=== PATIENT | female | born 1945 | race Caucasian/White ===

== ENCOUNTER 2017-09-26 05:07 | Emergency (ER) | payer MEDICARE, OTHER, MEDICAID ==
[~2017-09-26 05:07] MED LIST changes: -ACET-1966 PO; -ASPI-757 PO; -CALC1TAB24 PO; -CHOL10005 PO; -CYAN250013 PO; -DEXT1DRO15 OP; -DOCU-416 PO; -GUAI237L21 PO; -IBUP200C71 PO; -MAG-66 PO; -MAGN250T34 PO; -MEMA10TA18 PO; -[UNRECOGNIZED DRUG - CODE] PO
--- NOTE | 2017-09-26 05:17 | ER Report ---
History and Physical Time Seen By MD: 05:16 Hx. of Stated Complaint: Patient fell in the bathroom at [facility] HPI/ROS CHIEF COMPLAINT: fall HISTORY OF PRESENT ILLNESS: This is a 71 year old female. She had a fall in the bathroom this morning. She says that she fell to the left side and hit the side of her face and had pain in the left knee. She denies loss of consciousness. She has not headache, nausea, dizziness or vision changes at this time. She has some pain on the left side of her jaw. She denies neck or back pain. She has some pain in the left knee. She denies any other pain. No chest pain. No trouble breathing. No abdominal pain. She says that she did have a bladder suspension a few weeks ago. Allergies: Coded Allergies: Sulfa (Sulfonamide Antibiotics) (Unverified Allergy, Unknown, Rash, ) Home Meds Reported Medications Cholecalciferol (Vitamin D3) (VITAMIN D3) 1,000 Unit Tablet, 2000 UNITS PO DAILY , TAB 09/26/17 Vitamin B Complex (VITAMIN B COMPLEX) 1 Each Capsule, 1 EACH PO DAILY, CAPSULE 09/26/17 Cyanocobalamin (Vitamin B-12) (Vitamin B12) 2,500 Mcg Tab.chew, 0.5 TAB PO DAILY 09/26/17 Guaifenesin/Dextromethorphan (Robitussin Cough-Chest Dm Liq) 100 Mg-5 Mg/5 Ml Liquid, 5 ML PO Q4-6H Y for COUGH 09/26/17 Mag Hydrox/Al Hydrox/Simeth (MAALOX MAXIMUM STRENGTH SUSP) 355 Ml Oral.susp, 15 ML PO Q4H Y for REFLUX 09/26/17 Memantine Hcl 10 Mg Tab (NAMENDA 10 MG TAB) 10 Mg Tablet, 10 MG PO BID, TAB 09/26/17 Magnesium Oxide (MAGNESIUM) 250 Mg Tablet, 250 MG PO QHS 09/26/17 Ibuprofen (IBUPROFEN) 200 Mg Capsule, 3 CAP PO Q6H Y for PAIN, CAPSULE 09/26/17 Simethicone (GAS RELIEF) 125 Mg Capsule, 125 MG PO Q2H Y for GAS, CAPSULE 09/26/17 Docusate Sodium (COLACE) 100 Mg Capsule, 100 MG PO BID, CAPSULE 09/26/17 Aspirin (ASPIRIN) 325 Mg Tablet, 325 MG PO ONCE Y for PAIN, TAB 09/26/17 Dextran 70/Hypromellose (ARTIFICIAL TEARS) 1 Each Droperette, 1 EACH OP 09/26/17 Calcium Carbonate/Mag Hydrox (ANTACID CHEWABLE TABLET) 1 Each Tab.chew, 2 TAB PO Q2H Y for HEARTBURN, TAB.CHEW 09/26/17 Acetaminophen (TYLENOL) 325 Mg Tablet, 1-2 TAB PO Q4H Y for PAIN, TAB 09/26/17 Fesoterodine Fumarate (TOVIAZ) 8 Mg Tabsr, 8 MG PO QHS 08/22/17 Sertraline Hcl (SERTRALINE HCL) 100 Mg Tablet, 1 TAB PO QDAY, TAB 08/22/17 L.acidoph & Paracasei,B.lactis (Probiotic) 1 Each Capsule 08/22/17 Omeprazole (OMEPRAZOLE) 20 Mg Tablet.dr, 20 MG PO QDAY, TAB 08/22/17 Magnesium Hydroxide (MILK OF MAGNESIA) 400 Mg/5 Ml Oral.susp, 400 MG PO, BOTTLE 08/22/17 Lisinopril (LISINOPRIL) 10 Mg Tablet, 10 MG PO QDAY, TAB 08/22/17 Donepezil Hcl (DONEPEZIL HCL) 10 Mg Tab.rapdis, 10 MG PO QDAY, TAB 08/22/17 Atorvastatin Calcium (LIPITOR) 10 Mg Tablet, 1 TAB PO QDAY, TAB 08/22/17 Loperamide HCl (Imodium A-D) 2 Mg Capsule 08/22/17 Diphenhydramine Hcl (DIPHENHYDRAMINE HCL) 25 Mg Tablet, 25 MG PO PRN, TAB 08/22/17 Discontinued Reported Medications Cholecalciferol (Vitamin D3) (VITAMIN D3) 2,000 Unit Capsule, 2000 UNIT PO, CAPSULE 08/22/17 Vitamin B Complex (VITAMIN B COMPLEX) 1 Each Capsule, 1 EACH PO, CAPSULE 08/22/17 Cyanocobalamin (Vitamin B-12) (VITAMIN B-12) 1,000 Mcg/1 Ml Drops, 1000 MCG PO 08/22/17 Memantine HCl 10 MG (Memantine HCl 10 MG) 10 Mg Tablet 08/22/17 Meloxicam (MELOXICAM) 7.5 Mg Tablet, 7.5 MG PO QDAY 08/22/17 Aspirin (ASPIR 81) 81 Mg Tablet.dr, 81 MG PO QDAY, TAB 08/22/17 Simethicone (GAS-X) 125 Mg Tab.chew, 125 MG PO, TAB.CHEW 08/22/17 Acetaminophen 500 Mg Tab (ACETAMINOPHEN EXTRA STRENGTH) 500 Mg Tablet, 500 MG PO PRN, TAB 08/22/17 Methylprednisolone (METHYLPREDNISOLONE) 4 Mg Tab.ds.pk, 4 MG PO DIRECTED, TAB 08/22/17 Reviewed Nurses Notes: Yes Smoking Status: Never Smoker Constitutional Vital Sign - Last 24 Hours 09/26/17 09/26/17 09/26/17 09/26/17 05:08 05:30 05:45 06:00 Temp 98.1 Pulse 86 75 78 Resp 16 B/P (MAP) 130/89 Pulse Ox 90 96 97 96 O2 Delivery Room Air 09/26/17 06:52 B/P (MAP) 144/67 (92) Physical Exam General Appearance: The patient is alert, has no immediate need for airway protection and no current signs of toxicity. Eyes: Pupils equal and round, reactive to light, normal conjunctiva and sclera, extraocular movements are intact. ENT: No dental or oral trauma. Has some pain with palpation along the left lower mandible, but no pain at the TMJ, Zygoma, orbital rims or nasal bones. Tympanic membranes normal bilaterally Respiratory: Chest is non tender to palpation. Breath sounds are equal. Cardiac: Regular rate and rhythm. Gastrointestinal: Soft and non tender, there is no evidence of external or internal trauma by exam. Neurological: GCS 15. Alert and oriented x4. Skin: No lacerations. She does have some abrasions at the anterior and lateral left knee Musculoskeletal: Head: Atraumatic without scalp tenderness. Neck: The cervical spine is non-tender and there is no pain with active range of motion. Back: There is no thoracic or lumbar spine or paraspinal tenderness. Pelvis: Non-tender, no laxity with pelvic pressure. Extremities: Tender with palpation throughout the left knee. No pain in the rest of the extremities with full palpation of each area. DIFFERENTIAL DIAGNOSIS: After history and physical exam differential diagnosis was considered for trauma in a fall with pain only in the left mandible and left knee. Medical Decision Making EKG/Imaging Imaging KNEE 4 VIEW LEFT HISTORY: Fall. Left jaw and left knee pain. Unable to stand. COMPARISON: None. TECHNIQUE: AP, lateral, oblique, and sunrise views of the left knee. FINDINGS: There is no fracture or dislocation. There is mild medial and lateral tibiofemoral joint compartment narrowing. No joint effusion. IMPRESSION: 1. Mild degenerative changes, but no acute osseous abnormality of the left knee. Report Dictated By: Christianne Beebe at 09/26/2017 6:54 AM MANDIBLE < 4 VIEWS HISTORY: Fall. Left jaw and left knee pain. COMPARISON: None. TECHNIQUE: AP, lateral, right and left oblique, and Luna views of the mandible. FINDINGS: There is no fracture or dislocation. The mastoids and paranasal sinuses are well aerated. IMPRESSION: 1. No acute osseous abnormality of the mandible. Report Dictated By: Christianne Beebe at 09/26/2017 6:56 AM ED Course/Re-evaluation ED Course After exam, the only places that were hurting were her left knee and left lower jaw. imaging of these was negative. The patient was given tylenol for pain and an KEISHA wrap for compression of the knee. Decision to Disposition Date: Sep 26, 2017 Decision to Disposition Time: 07:13 Depart Departure Latest Vital Signs Vital Signs Date Time Temp Pulse Resp B/P (MAP) Pulse Ox O2 Delivery O2 Flow Rate FiO2 09/26/17 06:52 144/67 (92) 09/26/17 06:00 96 09/26/17 05:45 78 09/26/17 05:08 98.1 16 Room Air Impression: Primary Impression: Left knee sprain Additional Impression: Contusion of jaw Condition: Improved Disposition: HOME OR SELF-CARE Referrals: KOBE REYES MD (PCP) Patient Instructions: Contusion in Adults (ED), Knee Sprain (ED) Additional Instructions: Ibuprofen 200mg over the counter tablets, take 3 tablets three times a day with food as needed for pain. Tylenol 500mg, 1-2 every 6 hours as needed for pain. Apply ice 20 minutes every 1-2 hours while awake. An KEISHA wrap can be used for compression to help reduce swelling. Rest the injured area, keep it elevated while at rest. Begin gentle range of motion exercises. Problem Qualifiers Primary Impression: Left knee sprain Encounter type: initial encounter Involved ligament of knee: unspecified ligament Qualified Codes: S83.92XA - Sprain of unspecified site of left knee, initial encounter Additional Impression: Contusion of jaw Encounter type: initial encounter Qualified Codes: S00.83XA - Contusion of other part of head, initial encounter WILLIAM MONTEZ MD Sep 26, 2017 05:16
[2017-09-26] MEDS ORDERED: ASPI-757 PO (05:46)
[2017-09-26] MEDS ORDERED: MAG-66 PO (05:46)
[2017-09-26] MEDS ORDERED: DOCU-416 PO (05:46)
[2017-09-26] MEDS ORDERED: ACET-1966 PO (05:46)
[2017-09-26] MEDS ORDERED: CHOL10005 PO (05:46)
[2017-09-26] MEDS ORDERED: DEXT1DRO15 OP (05:46)
[2017-09-26] MEDS ORDERED: [UNRECOGNIZED DRUG - CODE] PO (05:46)
[2017-09-26] MEDS ORDERED: IBUP200C71 PO (05:46)
[2017-09-26] MEDS ORDERED: MEMA10TA18 PO (05:46)
[2017-09-26] MEDS ORDERED: GUAI237L21 PO (05:46)
[2017-09-26] MEDS ORDERED: VITA1CAP46 PO (05:46)
[2017-09-26] MEDS ORDERED: MAGN250T34 PO (05:46)
[2017-09-26] MEDS ORDERED: CYAN250013 PO (05:46)
[2017-09-26] MEDS ORDERED: CALC1TAB24 PO (05:46)
[2017-09-26 06:52] VITALS: BP 144/67
--- NOTE | 2017-09-26 07:01 | RADIOLOGY IMAGING REPORT ---
FACILITY: [facility] PATIENT NAME: Linda Shepard : 1945 MR: [id number] V: [id number] EXAM DATE: ORDERING PHYSICIAN: WILLIAM MONTEZ TECHNOLOGIST: Location: [facility] - [place] Patient: Linda Shepard : 1945 Visit/Account:[id number] Date of Sevice: 09/26/2017 KNEE 4 VIEW LEFT HISTORY: Fall. Left jaw and left knee pain. Unable to stand. COMPARISON: None. TECHNIQUE: AP, lateral, oblique, and sunrise views of the left knee. FINDINGS: There is no fracture or dislocation. There is mild medial and lateral tibiofemoral joint co mpartment narrowing. No joint effusion. IMPRESSION: 1. Mild degenerative changes, but no acute osseous abnormality of the left knee. Report Dictated By: Christianne Beebe at 09/26/2017 6:54 AM Report E-Signed By: Christianne Beebe at 09/26/2017 6:56 AM WSN:[id number]
--- NOTE | 2017-09-26 07:03 | RADIOLOGY IMAGING REPORT ---
FACILITY: [facility] - [place] PATIENT NAME: Linda Shepard : 1945 MR: [id number] V: [id number] EXAM DATE: ORDERING PHYSICIAN: WILLIAM MONTEZ TECHNOLOGIST: Location: [facility] - [place] Patient: Linda Shepard : 1945 Visit/Account:[id number] Date of Sevice: 09/26/2017 MANDIBLE < 4 VIEWS HISTORY: Fall. Left jaw and left knee pain. COMPARISON: None. TECHNIQUE: AP, lateral, right and left oblique, and Luna views of the mandible. FINDINGS: There is no fracture or dislocation. The mastoids and paranasal sinuses are well aerated. IMPRESSION: 1. No acute osseous abnormality of the mandible. Report Dictated By: Christianne Beebe at 09/26/2017 6:56 AM Report E-Signed By: Christianne Beebe at 09/26/2017 6:58 AM WSN:[id number]
[2017-09-26] MEDS ORDERED: ACETAMINOPHEN 500 MG TAB PO ONE (07:15)
== END 2017-09-26 07:45 | disposition home or self-care (01) ==
LOC: ER 05:16
DX: S83.92XA Sprain of unspecified site of left knee, initial encounter (principal); S00.83XA Contusion of other part of head, initial encounter; W18.30XA Fall on same level, unspecified, initial encounter
CPT/HCPCS: 70100; 73564; 99283; A9270

== ENCOUNTER → 2017-09-26 | Outpatient (CLI) | payer MEDICARE, OTHER, MEDICAID ==
[~2017-09-26] MED LIST: ACET-1966 PO; ACET-2146 PO; ASPI-1471 PO; ASPI-757 PO; ATOR10TA24 PO; CALC1TAB24 PO; CHOL10005 PO; CHOL200025 PO; CYAN10006 PO; CYAN250013 PO; DEXT1DRO15 OP; DIPH-616 PO; DOCU-416 PO; DONE10TA45 PO; FESO8PT PO; GUAI237L21 PO; IBUP200C71 PO; L.AC1CAP6; LISI-362 PO; LOPE2CAP15; MAG-66 PO; MAGN250T34 PO; MELO-205 PO; MEMA10TA18 PO; MEMA10TA3; METH4TAB66 PO; MOM PO; OMEP-137 PO; SERT-181 PO; SIME125T40 PO; VITA1CAP46 PO; [UNRECOGNIZED DRUG - CODE] PO
== END ==
LOC: AMB 04:39
PROVIDERS: ATTEND Nurse Practitioner
DX: M54.9 Dorsalgia, unspecified (principal); M25.512 Pain in left shoulder; W19.XXXA Unspecified fall, initial encounter
CPT/HCPCS: A0425; A0429

== ENCOUNTER → 2017-10-27 | Outpatient (REF) | payer MEDICARE, OTHER, MEDICAID ==
[~2017-10-27] MED LIST changes: +ACET-1966 PO; +ASPI-757 PO; +CALC1TAB24 PO; +CHOL10005 PO; +CYAN250013 PO; +DEXT1DRO15 OP; +DOCU-416 PO; +GUAI237L21 PO; +IBUP-136 PO; +MAG-66 PO; +MAGN250T34 PO; +MEMA10TA18 PO; +[UNRECOGNIZED DRUG - CODE] PO
== END ==
LOC: ZZSENDIN 10-26 06:37 → ZZSPRING 14:00
PROVIDERS: ATTEND Family Medicine
DX: R53.83 Other fatigue (principal); B96.89 Other specified bacterial agents as the cause of diseases classified elsewhere
CPT/HCPCS: 81001; 87088

== ENCOUNTER 2018-02-23 20:34 | Emergency (ER) | payer MEDICARE, OTHER, MEDICAID ==
[2018-02-23] MEDS ORDERED: NS(*) 0.9% 1000 ML BAG 1,000 ML IV ONE (20:47)
--- NOTE | 2018-02-23 20:47 | ER Report ---
History and Physical Time Seen By MD: 20:43 Hx. of Stated Complaint: Chest tightness, high bp, sob and very belchy HPI/ROS CHIEF COMPLAINT: chest tightness, belching, nausea. HISTORY OF PRESENT ILLNESS: This is a 72 year old female. Sent to the ER by EMS from [facility]. She told the nurses she was having chest pressure as well as increased belching and reflux. She had been having this for several hours, and not improving. She has dementia. She does take omeprazole. Has hypertension, but no history of coronary artery disease. Nothing changes her symptoms. No shortness of breath. No fevers or chills. Allergies: Coded Allergies: Sulfa (Sulfonamide Antibiotics) (Unverified Allergy, Unknown, Rash, 02/23/18) Home Meds Reported Medications Cholecalciferol (Vitamin D3) (VITAMIN D3) 1,000 Unit Tablet, 2000 UNITS PO DAILY, TAB 09/26/17 Vitamin B Complex (VITAMIN B COMPLEX) 1 Each Capsule, 1 EACH PO DAILY, CAPSULE 09/26/17 Cyanocobalamin (Vitamin B-12) (Vitamin B12) 2,500 Mcg Tab.chew, 0.5 TAB PO DAILY 09/26/17 Guaifenesin/Dextromethorphan (Robitussin Cough-Chest Dm Liq) 100 Mg-5 Mg/5 Ml Liquid, 5 ML PO Q4-6H PRN for COUGH 09/26/17 Mag Hydrox/Al Hydrox/Simeth (MAALOX MAXIMUM STRENGTH SUSP) 355 Ml Oral.susp, 15 ML PO Q4H PRN for REFLUX 09/26/17 Memantine Hcl 10 Mg Tab (NAMENDA 10 MG TAB) 10 Mg Tablet, 10 MG PO BID, TAB 09/26/17 Magnesium Oxide (MAGNESIUM) 250 Mg Tablet, 250 MG PO QHS 09/26/17 Ibuprofen (IBUPROFEN) 200 Mg Capsule, 3 CAP PO Q6H PRN for PAIN, CAPSULE 09/26/17 Simethicone (GAS RELIEF) 125 Mg Capsule, 125 MG PO Q2H PRN for GAS, CAPSULE 09/26/17 Docusate Sodium (COLACE) 100 Mg Capsule, 100 MG PO BID, CAPSULE 09/26/17 Aspirin (ASPIRIN) 325 Mg Tablet, 325 MG PO ONCE PRN for PAIN, TAB 09/26/17 Dextran 70/Hypromellose (ARTIFICIAL TEARS) 1 Each Droperette, 1 EACH OP 09/26/17 Calcium Carbonate/Mag Hydrox (ANTACID CHEWABLE TABLET) 1 Each Tab.chew, 2 TAB PO Q2H PRN for HEARTBURN, TAB.CHEW 09/26/17 Acetaminophen (TYLENOL) 325 Mg Tablet, 1-2 TAB PO Q4H PRN for PAIN, TAB 09/26/17 Fesoterodine Fumarate (TOVIAZ) 8 Mg Tabsr, 8 MG PO QHS 08/22/17 Sertraline Hcl (SERTRALINE HCL) 100 Mg Tablet, 1 TAB PO QDAY, TAB 08/22/17 L.acidoph & Paracasei,B.lactis (Probiotic) 1 Each Capsule 08/22/17 Omeprazole (OMEPRAZOLE) 20 Mg Tablet.dr, 20 MG PO QDAY, TAB 08/22/17 Magnesium Hydroxide (MILK OF MAGNESIA) 400 Mg/5 Ml Oral.susp, 400 MG PO, BOTTLE 08/22/17 Lisinopril (LISINOPRIL) 10 Mg Tablet, 10 MG PO QDAY, TAB 08/22/17 Donepezil Hcl (DONEPEZIL HCL) 10 Mg Tab.rapdis, 10 MG PO QDAY, TAB 08/22/17 Atorvastatin Calcium (LIPITOR) 10 Mg Tablet, 1 TAB PO QDAY, TAB 08/22/17 Loperamide HCl (Imodium A-D) 2 Mg Capsule 08/22/17 Diphenhydramine Hcl (DIPHENHYDRAMINE HCL) 25 Mg Tablet, 25 MG PO PRN, TAB 08/22/17 Reviewed Nurses Notes: Yes Smoking Status: Never Smoker Constitutional Vital Sign - Last 24 Hours 02/23/18 02/23/18 02/23/18 02/23/18 20:37 20:43 20:49 21:00 Temp 97.8 Pulse 65 64 Resp 14 32 B/P (MAP) 145/121 145/121 (129) 165/71 (102) Pulse Ox 96 97 O2 Delivery Room Air 02/23/18 02/23/18 02/23/18 02/23/18 21:04 21:09 21:24 21:30 Pulse 63 62 60 Resp 14 26 22 B/P (MAP) ???/??? (5185) 11/12/18 11/12/18 11/12/18 11/12/18 21:39 21:54 22:00 22:09 Pulse 63 61 61 Resp 19 16 13 B/P (MAP) 151/85 (107) Pulse Ox 95 02/23/18 02/23/18 02/23/18 02/23/18 22:24 22:30 22:35 22:50 Pulse 57 56 60 Resp 23 19 26 B/P (MAP) 154/69 (97) Pulse Ox 96 97 94 02/23/18 02/23/18 02/23/18 02/23/18 22:55 23:00 23:17 23:25 Pulse 60 57 Resp 17 23 B/P (MAP) ???/??? (1665) 155/70 (98) Pulse Ox 96 95 02/23/18 02/23/18 02/24/18 02/24/18 23:30 23:55 00:00 00:25 Pulse 60 60 Resp 17 16 B/P (MAP) 141/65 (90) 135/61 (85) Pulse Ox 96 96 02/24/18 00:30 B/P (MAP) 132/66 (88) Intake and Output 02/23/18 02/23/18 02/24/18 15:00 23:00 07:00 Intake Total 1000 ml Balance 1000 ml Physical Exam General Appearance: The patient is alert. No acute distress. Eyes: Pupils are equal, round. No pallor, injection or icterus. ENT: Mucous membranes are moist. Normal posterior oropharynx. Neck: Supple and non tender. Respiratory: Lungs are clear to auscultation. Cardiovascular: Regular rate and rhythm. No murmurs, gallops or rubs. Normal capillary refill. No edema. Gastrointestinal: Abdomen is soft and non tender. Nondistended. Normal active bowel sounds. No costovertebral angle tenderness with percussion. Neurological: Alert and oriented x3. Skin: Warm and dry. Musculoskeletal: Extremities are nontender. No tenderness in palpation of the cervical, thoracic and lumbar spine. DIFFERENTIAL DIAGNOSIS: After history and physical exam, differential diagnosis was considered for chest pain including but not limited to myocardial ischemia, pulmonary embolus, chest wall pain, pleural inflammation, reflux and pulmonary infectious causes. Medical Decision Making Data Points Result Diagram: 02/23/18212102/23/182121 Laboratory Hematology Test 02/23/18 21:22 Red Blood Count 4.00 M/uL (4.17-5.56) Mean Corpuscular Volume 93.6 fL (80.0-96.0) Mean Corpuscular Hemoglobin 32.3 pg (26.0-33.0) Mean Corpuscular Hemoglobin Concent 34.6 g/dL (32.0-36.0) Red Cell Distribution Width 12.7 % (11.5-14.5) Mean Platelet Volume 8.5 fL (7.2-11.1) Neutrophils (%) (Auto) 28.5 % (39.4-72.5) Lymphocytes (%) (Auto) 62.0 % (17.6-49.6) Monocytes (%) (Auto) 7.1 % (4.1-12.4) Eosinophils (%) (Auto) 1.3 % (0.4-6.7) Basophils (%) (Auto) 1.1 % (0.3-1.4) Nucleated RBC Relative Count (auto) 0.1 /100WBC Neutrophils # (Auto) 2.3 K/uL (2.0-7.4) Lymphocytes # (Auto) 5.0 K/uL (1.3-3.6) Monocytes # (Auto) 0.6 K/uL (0.3-1.0) Eosinophils # (Auto) 0.1 K/uL (0.0-0.5) Basophils # (Auto) 0.1 K/uL (0.0-0.1) Nucleated RBC Absolute Count (auto) 0.00 K/uL Peripheral Blood Smear Yes Y/N D-Dimer Quantitative (PE/DVT) 1.19 ug/ml (0-0.50) Sodium Level 139 mmol/L (137-145) Potassium Level 3.9 mmol/L (3.5-5.0) Chloride Level 108 mmol/L (98-107) Carbon Dioxide Level 23 mmol/L (22-31) Blood Urea Nitrogen 16 mg/dl (7-18) Creatinine 0.80 mg/dl (0.52-1.04) Glomerular Filtration Rate Calc > 60.0 Random Glucose 93 mg/dl (75-110) Calcium Level 9.4 mg/dl (8.4-10.2) Total Bilirubin 0.5 mg/dl (0.2-1.3) Aspartate Amino Transf (AST/SGOT) 43 U/L (0-35) Alanine Aminotransferase (ALT/SGPT) 33 U/L (0-56) Alkaline Phosphatase 59 U/L (0-126) Troponin I < 0.012 ng/ml B-Type Natriuretic Peptide 59 pg/ml (0-100) Total Protein 7.1 g/dl (6.3-8.2) Albumin 3.8 g/dl (3.5-5.0) Chemistry Test 02/23/18 21:22 White Blood Count 8.0 k/uL (4.5-11.0) Red Blood Count 4.00 M/uL (4.17-5.56) Hemoglobin 12.9 g/dL (12.0-16.0) Hematocrit 37.4 % (34.0-47.0) Mean Corpuscular Volume 93.6 fL (80.0-96.0) Mean Corpuscular Hemoglobin 32.3 pg (26.0-33.0) Mean Corpuscular Hemoglobin Concent 34.6 g/dL (32.0-36.0) Red Cell Distribution Width 12.7 % (11.5-14.5) Platelet Count 192 K/uL (150-450) Mean Platelet Volume 8.5 fL (7.2-11.1) Neutrophils (%) (Auto) 28.5 % (39.4-72.5) Lymphocytes (%) (Auto) 62.0 % (17.6-49.6) Monocytes (%) (Auto) 7.1 % (4.1-12.4) Eosinophils (%) (Auto) 1.3 % (0.4-6.7) Basophils (%) (Auto) 1.1 % (0.3-1.4) Nucleated RBC Relative Count (auto) 0.1 /100WBC Neutrophils # (Auto) 2.3 K/uL (2.0-7.4) Lymphocytes # (Auto) 5.0 K/uL (1.3-3.6) Monocytes # (Auto) 0.6 K/uL (0.3-1.0) Eosinophils # (Auto) 0.1 K/uL (0.0-0.5) Basophils # (Auto) 0.1 K/uL (0.0-0.1) Nucleated RBC Absolute Count (auto) 0.00 K/uL Peripheral Blood Smear Yes Y/N D-Dimer Quantitative (PE/DVT) 1.19 ug/ml (0-0.50) Glomerular Filtration Rate Calc > 60.0 Calcium Level 9.4 mg/dl (8.4-10.2) Total Bilirubin 0.5 mg/dl (0.2-1.3) Aspartate Amino Transf (AST/SGOT) 43 U/L (0-35) Alanine Aminotransferase (ALT/SGPT) 33 U/L (0-56) Alkaline Phosphatase 59 U/L (0-126) Troponin I < 0.012 ng/ml B-Type Natriuretic Peptide 59 pg/ml (0-100) Total Protein 7.1 g/dl (6.3-8.2) Albumin 3.8 g/dl (3.5-5.0) Coagulation Test 02/23/18 21:22 D-Dimer Quantitative (PE/DVT) 1.19 ug/ml EKG/Imaging EKG Interpretation 12 lead EKG: Rhythm: Normal sinus rhythm, rate 64 [place]: normal QRS: Low-voltage ST segments: normal Imaging INDICATION: Chest Pain. DATE: 02/23/2018 10:47 PM. TECHNIQUE: CHEST SINGLE AP COMPARISON: None FINDINGS: Heart size is normal. The lungs are hyperinflated. Interstitium is diffusely prominent. The hilar vasculature is distinct. IMPRESSION: No focal pneumonia. Hyperinflation suggests background emphysema. Report Dictated By: Devin Hudson MD at 02/23/2018 10:[address] PE DATE: 02/23/2018 11:40 PM INDICATION: Chest pain, elevated d-dimer. COMPARISON: Same-day chest radiograph. TECHNIQUE: Axial CT angiogram was obtained through the chest with intravenous contrast. Sagittal and coronal MPR and MIP coronal reformations were also generated. 75 mL isovue 370. One of the following dose optimization techniques was utilized in the performance of this exam: Automated exposure control; adjustment of the mA and/or kV according to the patient's size; or use of an iterative reconstruction technique. Specific details can be referenced in the facility's radiology CT exam operational policy. FINDINGS: Thyroid / Thoracic Inlet: No visualized thyroid nodule or supraclavicular lymphadenopathy. Pulmonary Arteries: No pulmonary embolism. Heart and Aorta: Normal-size heart with no pericardial effusion. Mild coronary artery calcification. Nonaneurysmal thoracic aorta with mild atherosclerosis. Mediastinum and Peggy: No lymphadenopathy. Lungs and Pleura: No pleural effusion or pneumothorax. Minimal scarring/atelectasis. No suspicious consolidation. Breast and Axilla: No axillary lymphadenopathy. Probable scarring and fat necrosis in the right breast. Upper Abdomen: No visualized acute abnormality. Bones and Soft Tissues: No suspicious osseous or soft tissue abnormality. IMPRESSION: No pulmonary embolism or other acute abnormality. Report Dictated By: Ian Luciano MD at 02/23/2018 11:40 PM ED Course/Re-evaluation Clinical Indication for ER IV: IV Access ED Course Initial evaluation as noted above. Mild symptoms of pressure at this time, still with burping. Improved after GI cocktail. Chest x-ray negative. Normal labs other than d-dimer. CTA done and negative. Decision to Disposition Date: Feb 24, 2018 Decision to Disposition Time: 00:30 Depart Departure Latest Vital Signs Vital Signs Date Time Temp Pulse Resp B/P (MAP) Pulse Ox O2 Delivery O2 Flow Rate FiO2 02/24/18 00:30 132/66 (88) 02/24/18 00:25 60 16 96 02/23/18 20:37 97.8 Room Air Impression: Primary Impression: Chest pain Condition: Improved Disposition: HOME OR SELF-CARE Referrals: KOBE REYES MD (PCP) Patient Instructions: Chest Pain (ED) Additional Instructions: We did not find a cause for your chest pain tonight. This may have been some indigestion and burping. No sign of blood clots, heart attack or pneumonia. Recommendation for follow-up with primary care in the next 1-2 weeks. Problem Qualifiers Primary Impression: Chest pain Chest pain type: other chest pain Qualified Codes: R07.89 - Other chest pain WILLIAM MONTEZ MD Feb 23, 2018 20:47
[2018-02-23] MEDS ORDERED: MAG HYD/AL HYD/SIMETH 30ML UDC PO ONE (20:50)
[2018-02-23] MEDS ORDERED: LIDOCAINE 2% VISC SLN 15ML UDC PO ONE (20:50)
[2018-02-23] MEDS ORDERED: ATRO/SCOPOL/HYOSCY/PB 5 ML ELX PO ONE (20:50)
[2018-02-23] MEDS ORDERED: ASPIRIN 81 MG CHEW PO ONE (20:50)
[2018-02-23 21:34] LABS: PLATELET COUNT, AUTOMATED 192 K/uL (150-450)
--- NOTE | 2018-02-23 22:54 | EKG ---
FACILITY: [facility] - [place] PATIENT NAME: GILBERTO GONZALEZ : [id number] MR: [id number] V: [id number] EXAM DATE: ORDERING PHYSICIAN: WILLIAM MONTEZ TECHNOLOGIST: DIANNA Fox Reason : CARDIAC Blood Pressure : / mmHG Vent. Rate : 064 BPM Atrial Rate : 064 BPM P-R Int : 160 ms QRS Dur : 074 ms QT Int : 446 ms P-R-T Axes : 074 000 071 degrees QTc Int : 460 ms Normal sinus rhythm Low voltage QRS Cannot rule out Anteroseptal infarct , age undetermined Abnormal ECG No previous ECGs available Confirmed by ELIE COLEMAN ([id number]) on 02/24/2018 6:37:59 AM Referred By: Confirmed By:ELIE COLEMAN
--- NOTE | 2018-02-23 22:54 | RADIOLOGY IMAGING REPORT ---
FACILITY: [facility] PATIENT NAME: Linda Shepard : 1945 MR: [id number] V: [id number] EXAM DATE: ORDERING PHYSICIAN: WILLIAM MONTEZ TECHNOLOGIST: Location: [facility] - [place] Patient: Linda Shepard : 1945 Visit/Account:[id number] Date of Sevice: 02/23/2018 INDICATION: Chest Pain. DATE: 02/23/2018 10:47 PM. TECHNIQUE: CHEST SINGLE AP COMPARISON: None FINDINGS: Heart size is normal. The lungs are hyperinflated. Interstitium is diffusely prominent. The hilar vasculature is distinct. IMPRESSION: No focal pneumonia. Hyperinflation suggests background emphysema. Report Dictated By: Devin Hudson MD at 02/23/2018 10:47 PM Report E-Signed By: Devin Hudson MD at 02/23/2018 10:50 PM WSN:[id number]
[2018-02-23] MEDS ORDERED: IOPAMIDOL 76% 75 ML INFUS BTL 75 ML ONE (22:56)
[2018-02-23] MEDS ORDERED: NS(*) 0.9% 50 ML BAG 50 ML ONE (22:56)
--- NOTE | 2018-02-23 23:53 | RADIOLOGY IMAGING REPORT ---
FACILITY: [facility] - [place] PATIENT NAME: Linda Shepard : 1945 MR: [id number] V: [id number] EXAM DATE: ORDERING PHYSICIAN: WILLIAM MONTEZ TECHNOLOGIST: Location: [facility] Patient: Linda Shepard : 1945 Visit/Account:[id number] Date of Sevice: 02/23/2018 CT PE DATE: 02/23/2018 11:40 PM INDICATION: Chest pain, elevated d-dimer. COMPARISON: Same-day chest radiograph. TECHNIQUE: Axial CT angiogram was obtained through the chest with intravenous contrast. Sagittal an d coronal MPR and MIP coronal reformations were also generated. 75 mL isovue 370. One of the follow ing dose optimization techniques was utilized in the performance of this exam: Automated exposure con trol; adjustment of the mA and/or kV according to the patient's size; or use of an iterative reconst ruction technique. Specific details can be referenced in the facility's radiology CT exam operationa l policy. FINDINGS: Thyroid / Thoracic Inlet: No visualized thyroid nodule or supraclavicular lymphadenopathy. Pulmonary Arteries: No pulmonary embolism. Heart and Aorta: Normal-size heart with no pericardial effusion. Mild coronary artery calcification . Nonaneurysmal thoracic aorta with mild atherosclerosis. Mediastinum and Peggy: No lymphadenopathy. Lungs and Pleura: No pleural effusion or pneumothorax. Minimal scarring/atelectasis. No suspicious consolidation. Breast and Axilla: No axillary lymphadenopathy. Probable scarring and fat necrosis in the right kwaku ast. Upper Abdomen: No visualized acute abnormality. Bones and Soft Tissues: No suspicious osseous or soft tissue abnormality. IMPRESSION: No pulmonary embolism or other acute abnormality. Report Dictated By: Ian Luciano MD at 02/23/2018 11:40 PM Report E-Signed By: Ian Luciano MD at 02/23/2018 11:50 PM WSN:[id number]
[2018-02-24 00:30] VITALS: BP 132/66
== END 2018-02-24 00:50 | disposition home or self-care (01) ==
LOC: ER 20:59
DX: R07.89 Other chest pain (principal)
CPT/HCPCS: 36415; 71045; 71275; 83880; 84484; 85025; 85379; 93005; 96360; 99284; A9270; J7030; J7050; Q9967; 82040; 82247; 82310; 82374; 82435; 82565; 82947; 84075; 84132; 84155; 84295; 84450; 84460; 84520

== ENCOUNTER → 2018-02-23 | Outpatient (CLI) | payer MEDICARE, OTHER, MEDICAID | LOC: AMB 20:15 | PROVIDERS: ATTEND Nurse Practitioner | DX: R07.1 Chest pain on breathing (principal); R14.2 Eructation | CPT/HCPCS: A0425; A0427 ==

== ENCOUNTER → 2018-05-19 | Outpatient (CLI) | payer MEDICARE, OTHER, MEDICAID ==
[~2018-05-19] MED LIST changes: +SIME125C33 PO; -[UNRECOGNIZED DRUG - CODE] PO
== END ==
LOC: ZZSPRING 01:11
PROVIDERS: ATTEND Family Medicine
DX: Z51.81 Encounter for therapeutic drug level monitoring (principal); Z79.899 Other long term (current) drug therapy
CPT/HCPCS: 36415; 82310; 82374; 82435; 82565; 82947; 84132; 84295; 84520

== ENCOUNTER 2018-06-10 22:22 | Emergency (ER) | payer MEDICARE, OTHER, MEDICAID ==
[~2018-06-10 22:22] MED LIST changes: -HYDR-2966 PO; -MIRA25TA PO; -PREPH PR; -QUET25TA PO
--- NOTE | 2018-06-10 22:29 | ER Report ---
History and Physical Time Seen By MD: 22:28 Hx. of Stated Complaint: PATIENT BROUGHT IN VIA EMS. NURSE, BARBARA, CALLED TO REPORT THAT PATIENT FELL YESTERDAY AND HIT HEAD. THEN SECOND FALL OCCURED TONIGHT. REPORTED PATIENT SLID OFF BED AND COMPAINS OF LEFT SIDED RIB PAIN. HPI/ROS CHIEF COMPLAINT: falls, head, neck shoulder and rib pain HISTORY OF PRESENT ILLNESS: This is a 72 year old female. She is a resident of [facility]. Had a fall last night, hit head and shoulder, with pain. Same tonight and left rib pain. These were episodes of sliding out of bed, question if she was meaning to do so for attention, which sounds like has be a problem in the past. She has underlying dementia. She denies nausea. She denies dizziness at this time. Normal vision. Allergies: Coded Allergies: Sulfa (Sulfonamide Antibiotics) (Verified Allergy, Unknown, Rash, 06/10/18) Home Meds Reported Medications Phe/Shark Liver Oil/Glycer/Pet (PREPARATION H CREAM) 27 Gm Cr, 27 GM [place] BID 06/11/18 Mirabegron (MYRBETRIQ) 25 Mg Tab.er.24h, 25 MG PO HS 06/11/18 Quetiapine Fumarate (QUETIAPINE FUMARATE) 25 Mg Tablet, 12.5 MG PO BID 06/11/18 Hydrochlorothiazide (HYDROCHLOROTHIAZIDE) 25 Mg Tablet, 0.5 TAB PO QDAY, TAB 06/11/18 Cholecalciferol (Vitamin D3) (VITAMIN D3) 1,000 Unit Tablet, 2000 UNITS PO DAILY, TAB 09/26/17 Vitamin B Complex (VITAMIN B COMPLEX) 1 Each Capsule, 1 EACH PO DAILY, CAPSULE 09/26/17 Cyanocobalamin (Vitamin B-12) (Vitamin B12) 2,500 Mcg Tab.chew, 0.5 TAB PO DAILY 09/26/17 Guaifenesin/Dextromethorphan (Robitussin Cough-Chest Dm Liq) 100 Mg-5 Mg/5 Ml Liquid, 5 ML PO Q4-6H PRN for COUGH 09/26/17 Mag Hydrox/Al Hydrox/Simeth (MAALOX MAXIMUM STRENGTH SUSP) 355 Ml Oral.susp, 15 ML PO Q4H PRN for REFLUX 09/26/17 Memantine Hcl 10 Mg Tab (NAMENDA 10 MG TAB) 10 Mg Tablet, 10 MG PO BID, TAB 09/26/17 Ibuprofen (IBUPROFEN) 200 Mg Capsule, 3 CAP PO Q6H PRN for PAIN, CAPSULE 09/26/17 Simethicone (GAS RELIEF) 125 Mg Capsule, 125 MG PO Q2H PRN for GAS, CAPSULE 09/26/17 Docusate Sodium (COLACE) 100 Mg Capsule, 100 MG PO BID, CAPSULE 09/26/17 Aspirin (ASPIRIN) 325 Mg Tablet, 325 MG PO ONCE PRN for PAIN, TAB 09/26/17 Dextran 70/Hypromellose (ARTIFICIAL TEARS) 1 Each Droperette, 1 EACH OP 09/26/17 Calcium Carbonate/Mag Hydrox (ANTACID CHEWABLE TABLET) 1 Each Tab.chew, 2 TAB PO Q2H PRN for HEARTBURN, TAB.CHEW 09/26/17 Acetaminophen (TYLENOL) 325 Mg Tablet, 1-2 TAB PO Q4H PRN for PAIN, TAB 09/26/17 Sertraline Hcl (SERTRALINE HCL) 100 Mg Tablet, 1 TAB PO QDAY, TAB 08/22/17 L.acidoph & Paracasei,B.lactis (Probiotic) 1 Each Capsule 08/22/17 Omeprazole (OMEPRAZOLE) 20 Mg Tablet.dr, 20 MG PO QDAY, TAB 08/22/17 Lisinopril (LISINOPRIL) 10 Mg Tablet, 10 MG PO QDAY, TAB 08/22/17 Donepezil Hcl (DONEPEZIL HCL) 10 Mg Tab.rapdis, 10 MG PO QDAY, TAB 08/22/17 Atorvastatin Calcium (LIPITOR) 10 Mg Tablet, 1 TAB PO QDAY, TAB 08/22/17 Loperamide HCl (Imodium A-D) 2 Mg Capsule 08/22/17 Diphenhydramine Hcl (DIPHENHYDRAMINE HCL) 25 Mg Tablet, 25 MG PO PRN, TAB 08/22/17 Discontinued Reported Medications Magnesium Oxide (MAGNESIUM) 250 Mg Tablet, 250 MG PO QHS 09/26/17 Fesoterodine Fumarate (TOVIAZ) 8 Mg Tabsr, 8 MG PO QHS 08/22/17 Magnesium Hydroxide (MILK OF MAGNESIA) 400 Mg/5 Ml Oral.susp, 400 MG PO, BOTTLE 08/22/17 Reviewed Nurses Notes: Yes Smoking Status: Never Smoker Constitutional Vital Sign - Last 24 Hours 06/10/18 06/10/18 06/10/1819 22:22 22:23 22:52 23:29 Temp 98.0 Pulse 65 68 64 Resp 15 B/P (MAP) 145/85 134/67 (89) Pulse Ox 93 91 92 O2 Delivery Room Air 06/10/18 06/11/18 06/11/18 06/11/18 23:34 00:04 00:34 00:39 Pulse 63 61 58 55 Pulse Ox 95 97 95 95 06/11/18 06/11/18 06/11/18 06/11/18 01:09 01:14 01:44 02:01 Pulse 56 54 ??? B/P (MAP) 117/56 (76) Pulse Ox 97 96 96 Physical Exam General Appearance: Alert, no acute distress. Eyes: Pupils equal and round no injection. Extraocular movements are intact. Reactive to light. ENT: Normal oral mucosa. Moist mucous membranes. Neck: Neck is supple. Respiratory: Chest is non tender, lungs are clear to auscultation. Cardiac: regular rate and rhythm Neuro: Underlying dementia, otherwise interaction is normal. Musculoskeletal: Pain with palpation of cervical spine. Pain over clavicle and acromium area. No pain in arm. Pain in left ribs. Skin: No rashes or lesions. DIFFERENTIAL DIAGNOSIS: After history and physical exam differential diagnosis was considered for report of fall in a patient with dementia, we'll check CT scans and x-rays to rule out fracture Medical Decision Making EKG/Imaging Imaging CT obtained: Head and cervical spine. Results: Negative for acute process. The study was read by the radiologist and was reviewed by me. X-ray: Chest/ribs and left shoulder was obtained. I viewed the images myself on the PACS system. My interpretation of the images is: Negative. The radiologist interpretation had no clinically significant variation from this interpretation. ED Course/Re-evaluation ED Course Conservative management with Tylenol and discharged back to spring. Decision to Disposition Date: Jun 11, 2018 Decision to Disposition Time: 02:06 Depart Departure Latest Vital Signs Vital Signs Date Time Temp Pulse Resp B/P (MAP) Pulse Ox O2 Delivery O2 Flow Rate FiO2 06/11/18 02:01 117/56 (76) 06/11/18 01:44 ??? 96 06/10/18 22:23 98.0 15 Room Air Impression: Primary Impression: Contusion of shoulder, left Additional Impression: Contusion of rib on left side Condition: Improved Disposition: HOME OR SELF-CARE Referrals: KOBE REYES MD (PCP) Patient Instructions: Contusion in Adults (ED), Fall Prevention for Older Adults (ED) Additional Instructions: No acute injuries other than contusions noted on imaging today. Recommended use of Tylenol as needed to help with pain. Problem Qualifiers Primary Impression: Contusion of shoulder, left Encounter type: initial encounter Qualified Codes: S40.012A - Contusion of left shoulder, initial encounter Additional Impression: Contusion of rib on left side Encounter type: initial encounter Qualified Codes: S20.212A - Contusion of left front wall of thorax, initial encounter WILLIAM MONTEZ MD Jun 10, 2018 22:29
[2018-06-11] MEDS ORDERED: HYDR-2966 PO (00:05)
--- NOTE | 2018-06-11 00:08 | RADIOLOGY IMAGING REPORT ---
FACILITY: [facility] - [place], [place] PATIENT NAME: Linda Shepard : 1945 MR: [id number] V: [id number] EXAM DATE: ORDERING PHYSICIAN: WILLIAM MONTEZ TECHNOLOGIST: Location: [facility] [place] Patient: Linda Shepard : 1945 Visit/Account:[id number] Date of Sevice: 06/10/[address] scan without contrast COMPARISONS: None ADDITIONAL PERTINENT HISTORY: Fall TECHNIQUE: Multiple axial images were obtained from the skull base to the vertex without IV contrast . One of the following dose optimization techniques was utilized in the performance of this exam: Aut omated exposure control; adjustment of the mA and/or kV according to the patient's size; or use of an iterative reconstruction technique. Specific details can be referenced in the facility's radiology CT exam operational policy. FINDINGS: Midline shift: Negative Ventricles: Moderate enlargement of the lateral and third ventricles. Otherwise negative Brain parenchyma: Patchy hypoattenuation within the periventricular and subcortical white matter com patible with small vessel ischemic change on a chronic basis. No intraparenchymal hemorrhage or mass effect. Extra-axial spaces: Moderate cerebral atrophy. Intracranial vasculature: Cavernous internal carotid and distal vertebral artery calcifications. Oth erwise negative Osseous structures: Negative Paranasal sinuses and mastoid air cells: Negative Surrounding soft tissues and orbits: Soft tissue hematoma involving the left parietal scalp soft tis sues. IMPRESSION: 1. Mild left parietal scalp soft tissue hematoma. 2. Age related changes as described above. 3. No evidence of acute intracranial pathology. Report Dictated By: Jimmy Castellanos MD at 06/10/2018 11:59 PM Report E-Signed By: Jimmy Castellanos MD at 06/11/2018 12:02 AM WSN:[id number]
--- NOTE | 2018-06-11 00:09 | RADIOLOGY IMAGING REPORT ---
FACILITY: [facility] PATIENT NAME: Linda Shepard : 1945 MR: [id number] V: [id number] EXAM DATE: ORDERING PHYSICIAN: WILLIAM MONTEZ TECHNOLOGIST: Location: [facility] Patient: Linda Shepard : 1945 Visit/Account:[id number] Date of Sevice: 06/10/2018 CHEST PA LAT COMPARISONS: Single view chest dated February 23, 2018 ADDITIONAL PERTINENT HISTORY: Fall FINDINGS: Cardiomediastinal silhouette: Negative. Pulmonary vasculature: Atherosclerotic disease of the thoracic aortic arch. Lung pruitt: Minimal bibasilar regions of scarring. Otherwise negative Pleural spaces: Negative. Osseous structures: Negative, specifically no evidence of left-sided rib fracture. Surrounding soft tissues: Negative. IMPRESSION: No evidence of acute cardiopulmonary disease. Report Dictated By: Jimmy Castellanos MD at 06/11/2018 12:02 AM Report E-Signed By: Jimmy Castellanos MD at 06/11/2018 12:04 AM WSN:[id number]
--- NOTE | 2018-06-11 00:10 | RADIOLOGY IMAGING REPORT ---
FACILITY: [facility] - [place] PATIENT NAME: Linda Shepadr : 1945 MR: [id number] V: [id number] EXAM DATE: ORDERING PHYSICIAN: WILLIAM MONTEZ TECHNOLOGIST: Location: [facility] Patient: Linda Shepard : 1945 Visit/Account:[id number] Date of Sevice: 06/10/2018 SHOULDER MIN 2 VIEWS LEFT COMPARISONS: None. ADDITIONAL PERTINENT HISTORY: Fall with left shoulder pain. FINDINGS: Osseous structures: Negative. Joint spaces: Negative. Surrounding soft tissues: Negative. IMPRESSION: Normal views of the left shoulder Report Dictated By: Jimmy Castellanos MD at 06/11/2018 12:04 AM Report E-Signed By: Jimmy Castellanos MD at 06/11/2018 12:05 AM WSN:[id number]
--- NOTE | 2018-06-11 00:12 | RADIOLOGY IMAGING REPORT ---
FACILITY: [facility] - [place] PATIENT NAME: Linda Shepard : 1945 MR: [id number] V: [id number] EXAM DATE: ORDERING PHYSICIAN: WILLIAM MONTEZ TECHNOLOGIST: Location: [facility] [place] Patient: Linda Shepard : 1945 Visit/Account:[id number] Date of Sevice: 06/10/2018 CT VERTEBRA CERVICAL (NON CON) COMPARISONS: None. ADDITIONAL PERTINENT HISTORY: Fall with pain. TECHNIQUE: Multiple axial images were obtained from the skull base through the upper thoracic spine with coronal and sagittal reformatted images obtained without IV contrast. One of the following dose optimization techniques was utilized in the performance of this exam: Automated exposure control; adj ustment of the mA and/or kV according to the patient's size; or use of an iterative reconstruction t echnique. Specific details can be referenced in the facility's radiology CT exam operational policy. FINDINGS. Vertebral body heights and alignment: Negative. Vertebral bodies: Mild anteriorly and posteriorly directed osteophytes at C5-C6. Facet hypertrophic c hanges at multiple levels. No bony fractures. Disc spaces: None. Cranial cervical junction: Negative. Cervical thoracic junction: Negative. Surrounding soft tissues: Negative. Lung apices: Pleural-parenchymal changes involving both lung apices. IMPRESSION: 1. Spondylitic change involving the cervical spine. 2. No acute appearing bony abnormalities. Report Dictated By: Jimmy Castellanos MD at 06/11/2018 12:05 AM Report E-Signed By: Jimmy Castellanos MD at 06/11/2018 12:08 AM WSN:[id number]
--- NOTE | 2018-06-11 00:14 | RADIOLOGY IMAGING REPORT ---
FACILITY: [facility] PATIENT NAME: Linda Shepard : 1945 MR: [id number] V: [id number] EXAM DATE: ORDERING PHYSICIAN: WILLIAM MONTEZ TECHNOLOGIST: Location: [facility] Patient: Linda Shepard : 1945 Visit/Account:[id number] Date of Sevice: 06/10/2018 Examination: 2 views of the left lower ribs. Comparisons: None. HISTORY: Fall with left-sided rib pain. FINDINGS: 2 dedicated views of the lower left ribs demonstrate no evidence of displaced rib fracture or other o sseous abnormality. Mild scarring at the left lung base. IMPRESSION: 1. No evidence of displaced left-sided rib fracture on the supplied images. Report Dictated By: Jimmy Castellanos MD at 06/11/2018 12:08 AM Report E-Signed By: Jimmy Castellanos MD at 06/11/2018 12:09 AM WSN:[id number]
[2018-06-11] MEDS ORDERED: QUET25TA PO (00:24)
[2018-06-11] MEDS ORDERED: MIRA25TA PO (00:24)
[2018-06-11] MEDS ORDERED: PREPH PR (00:24)
[2018-06-11 02:01] VITALS: BP 117/56
== END 2018-06-11 02:16 | disposition home or self-care (01) ==
LOC: ER 22:31
DX: S40.012A Contusion of left shoulder, initial encounter (principal); S20.212A Contusion of left front wall of thorax, initial encounter; F03.90 Unspecified dementia, unspecified severity, without behavioral disturbance, psychotic disturbance, mood disturbance, and anxiety
CPT/HCPCS: 70450; 71046; 71100; 72125; 99284

== ENCOUNTER → 2018-06-10 | Outpatient (CLI) | payer MEDICARE, OTHER, MEDICAID ==
[~2018-06-10] MED LIST changes: +HYDR-2966 PO; +MIRA25TA PO; +PREPH PR; +QUET25TA PO
== END ==
LOC: AMB 21:58
PROVIDERS: ATTEND Nurse Practitioner
DX: R07.1 Chest pain on breathing (principal); S00.12XA Contusion of left eyelid and periocular area, initial encounter
CPT/HCPCS: A0425; A0429

== ENCOUNTER → 2018-10-03 | Outpatient (REF) | payer MEDICARE, MEDICAID ==
[~2018-10-03] MED LIST changes: +HYDR-2966 PO; +MIRA25TA PO; +PREPH PR; +QUET25TA PO
== END ==
LOC: ZZSPRING 18:16
PROVIDERS: ATTEND Family Medicine
DX: N39.0 Urinary tract infection, site not specified (principal)
CPT/HCPCS: 81001

== ENCOUNTER → 2018-10-07 | Outpatient (REF) | payer MEDICARE, MEDICAID | LOC: ZZSENDIN 14:35 | PROVIDERS: ATTEND Family Medicine | DX: R82.90 Unspecified abnormal findings in urine (principal) | CPT/HCPCS: 87088 ==